=== PATIENT | female | born 1995 | race American Indian/Alaskan Native ===

== ENCOUNTER 2019-11-01 06:40 | Emergency (ER) | payer OTHER ==
[2019-11-01 06:52] VITALS: BP 112/67
[2019-11-01] MEDS ORDERED: ACETAMINOPHEN W/CODEINE 300-30 MG TAB PO ONE (07:47)
[2019-11-01] MEDS ORDERED: KETOROLAC 30 MG/1 ML INJ IM ONE (07:47)
--- NOTE | 2019-11-01 08:00 | Emergency Department Report ---
ED Extremity Problem HPI - General Chief complaint: Extremity Problem,Nontraumatic Stated complaint: L LEG PAIN Source: patient, EMS Mode of arrival: Wheelchair Limitations: No Limitations - History of Present Illness Initial comments: 24-year-old -Martiniquais female presents to the emergency room complaining of left leg pain that radiates up to her hip x2 days. Patient denies any injury. Patient states that it travels from her knee to her hip. Patient reports she is taking Tylenol and ibuprofen last dose 5 PM yesterday. Patient's last menstrual period was 10/30/2019 and is currently on her menses. Patient denies any control use no traveling no cancer. Patient denies any past medical history currently takes no medications on a daily basis and has no known drug allergies. MD Complaint: extremity pain Location: left, lower extremity, knee History of Same: No Severity scale (0 -10): 10 Quality: stabbing, sharp Consistency: constant Improves with: nothing Worsens with: weight bearing, walking, palpation Associated Symptoms: denies other symptoms - Related Data Previous Rx's Medication Instructions Recorded Last Taken Type Ibuprofen [Motrin 800 MG tab] 800 mg PO Q8HR PRN #30 tablet 11/01/19 Unknown Rx traMADoL [Ultram 50 MG tab] 50 mg PO Q4HR PRN #12 tablet 11/01/19 Unknown Rx Allergies Allergy/AdvReac Type Severity Reaction Status Date / Time No Known Allergies Allergy Unverified 11/01/19 06:52 ED Review of Systems ROS: Stated complaint: L LEG PAIN Other details as noted in HPI Comment: All other systems reviewed and negative ED Past Medical Hx - Past Medical History Previous Medical History?: No - Surgical History Past Surgical History?: Yes Additional Surgical History: - Social History Smoking Status: Never Smoker Substance Use Type: None - Medications Home Medications: Home Medications Medication Instructions Recorded Confirmed Last Taken Type Ibuprofen [Motrin 800 MG tab] 800 mg PO Q8HR PRN #30 tablet 11/01/19 Unknown Rx traMADoL [Ultram 50 MG tab] 50 mg PO Q4HR PRN #12 tablet 11/01/19 Unknown Rx ED Physical Exam - General Limitations: No Limitations General appearance: alert, in distress - Head Head exam: Present: atraumatic, normocephalic - Eye Eye exam: Present: normal appearance - ENT ENT exam: Present: mucous membranes moist - Expanded Lower Extremity Exam Left Hip exam: Present: full ROM, tenderness Upper Leg exam: Present: full ROM, tenderness Knee exam: Present: normal inspection, full ROM, tenderness. Absent: abrasion, laceration, deformity Lower Leg exam: Present: tenderness, swelling, Jayant's sign. Absent: palpable cord Ankle exam: Present: normal inspection, full ROM. Absent: tenderness, swelling Foot/Toe exam: Present: normal inspection, full ROM Neuro vascular tendon exam: Present: no vascular compromise Gait: Positive: observed and limited by pain - Back Exam Back exam: Present: normal inspection - Neurological Exam Neurological exam: Present: alert, oriented X3 - Psychiatric Psychiatric exam: Present: normal affect, normal mood - Skin Skin exam: Present: warm, dry, intact, normal color. Absent: rash ED Course Vital Signs 11/01/19 11/01/19 11/01/19 06:50 07:56 07:58 Temperature 98.0 F Pulse Rate 103 H Respiratory 18 22 22 Rate Blood Pressure 112/67 O2 Sat by Pulse 100 Oximetry ED Medical Decision Making - Radiology Data Radiology results: report reviewed Print Report Referring Physician:HEMALATHA BARBOZAPatient Name:ESPERANZA MARQUEZPatient ID:[id number] of :[id number]:FemaleAccession:[id number] Date:9506-77-18Pbkhfh Status:Finalized Findings [facility] [address] [place] [address] XRay Report Signed Patient: ESPERANZA MARQUEZ MR#: [id number] : 1995 Acct:[id number] Age/Sex: 24 / F ADM Date: 11/01/19 Loc: ED Attending Dr: Ordering Physician: VEDA MIX Date of Service: 11/01/19 Procedure(s): XR femur 2+V LT Accession Number(s): [id number] cc: VEDA MIX Fluoro Time In Minutes: LEFT FEMUR 4 VIEWS INDICATION / CLINICAL INFORMATION: Left hip pain and thigh pain. COMPARISON: None available. FINDINGS: No fracture, dislocation or skeletal abnormality is seen within the left femur. Signer Name: Quintin Enamorado MD Signed: 11/01/2019 8:29 AM Workstation Name: [id number] Transcribed By: TL Dictated By: Quintin Enamorado MD Electronically Authenticated By: Quintin Enamorado MD Signed Date/Time: 11/01/19828 DD/ 7 TD/TT: Print Report Referring Physician:HEMALATHA BARBOZAPatient Name:ESPERANZA MARQUEZPatient ID:[id number] of :[id number]:FemaleAccession:[id number] Date:0136-12-41Xcosms Status:Finalized Findings [facility] [address] [place] [address] Vascular Lab Report Signed Patient: ESPERANZA MARQUEZ MR#: [id number] : 1995 Acct:[id number] Age/Sex: 24 / F ADM Date: 11/01/19 Loc: ED Attending Dr: Ordering Physician: VEDA MIX Date of Service: 11/01/19 Procedure(s): VL venous duplex LE LT Accession Number(s): [id number] cc: VEDA MIX DUPLEX DOPPLER LOWER EXTREMITY VEINS, LEFT INDICATION / CLINICAL INFORMATION: left leg pain no injury. TECHNIQUE: Duplex doppler imaging was performed through the veins of the left lower extremity using venous compression and other maneuvers. COMPARISON: None available. FINDINGS: COMMON FEMORAL VEIN: Negative. FEMORAL VEIN: Negative. POPLITEAL VEIN: Negative. CALF VEINS: Negative. ADDITIONAL FINDINGS: None. IMPRESSION: 1. No sonographic evidence for DVT in the left lower extremity. Signer Name: Quintin Enamorado MD Signed: 11/01/2019 9:13 AM Workstation Name: [id number] Transcribed By: TL Dictated By: Quintin Enamorado MD Electronically Authenticated By: Quintin Enamorado MD Signed Date/Time: 11/01/19912 DD/ 2 TD/TT: - Medical Decision Making 24-year-old -Martiniquais female presents to the emergency room complaining of left leg pain that radiates up to her hip x2 days. Patient denies any injury. Patient states that it travels from her knee to her hip. Patient reports she is taking Tylenol and ibuprofen last dose 5 PM yesterday. Patient's last menstrual period was 10/30/2019 and is currently on her menses. Patient denies any control use no traveling no cancer. Patient denies any past medical history currently takes no medications on a daily basis and has no known drug allergies. Tylenol 3, Toradol, hip x-ray and lower extremity Doppler of the left leg. X-ray of hip and ultrasound of lower extremities of both negative for any acute findings. Patient be treated for a leg strain and to follow-up with an orthopedic provider or primary care provider. Critical care attestation.: If time is entered above; I have spent that time in minutes in the direct care of this critically ill patient, excluding procedure time. ED Disposition Clinical Impression: Pain in left lower leg Disposition: DC-01 TO HOME OR SELFCARE Is pt being admited?: No Does the pt Need Aspirin: No Condition: Stable Instructions: Arthralgia (ED), Lumbar Radiculopathy (ED) Additional Instructions: X-ray of hip and ultrasound of lower extremities of both negative for any acute findings. Patient be treated for a leg strain and to follow-up with an orthopedic provider or primary care provider. Prescriptions: Ibuprofen [Motrin 800 MG tab] 800 mg PO Q8HR PRN #30 tablet PRN Reason: Pain , Severe (7-10) traMADoL [Ultram 50 MG tab] 50 mg PO Q4HR PRN #12 tablet PRN Reason: Pain Referrals: KATIE MARTÍNEZ MD [Staff Physician] - 3-5 Days [facility] [Provider Group] - 3-5 Days JIAN PFEIFFER MD [Staff Physician] - 3-5 Days Forms: Work/School Release Form(ED)
--- NOTE | 2019-11-01 08:33 | XRay Report ---
LEFT FEMUR 4 VIEWS INDICATION / CLINICAL INFORMATION: Left hip pain and thigh pain. COMPARISON: None available. FINDINGS: No fracture, dislocation or skeletal abnormality is seen within the left femur. Signer Name: Quintin Enamorado MD Signed: 11/01/2019 8:29 AM Workstation Name: [id number]
--- NOTE | 2019-11-01 09:18 | Vascular Lab Report ---
DUPLEX DOPPLER LOWER EXTREMITY VEINS, LEFT INDICATION / CLINICAL INFORMATION: left leg pain no injury. TECHNIQUE: Duplex doppler imaging was performed through the veins of the left lower extremity using venous compr ession and other maneuvers. COMPARISON: None available. FINDINGS: COMMON FEMORAL VEIN: Negative. FEMORAL VEIN: Negative. POPLITEAL VEIN: Negative. CALF VEINS: Negative. ADDITIONAL FINDINGS: None. IMPRESSION: 1. No sonographic evidence for DVT in the left lower extremity. Signer Name: Quintin Enamorado MD Signed: 11/01/2019 9:13 AM Workstation Name: [id number]
== END 2019-11-01 10:09 | disposition home or self-care (01) ==
LOC: ED 06:40
DX: M79.662 Pain in left lower leg (principal); Z98.890 Other specified postprocedural states; Z79.1 Long term (current) use of non-steroidal anti-inflammatories (NSAID); Z79.899 Other long term (current) drug therapy
CPT/HCPCS: 73552; 93971; 96372; 99284; J1885